=== PATIENT | male | born 1985 | race African-American/Black ===

== ENCOUNTER 2017-07-09 19:21 | Emergency (ER) | payer SELFPAY ==
[~2017-07-09] VITALS: Ht 170.2 cm; Wt 74.4 kg
[2017-07-09 19:36] VITALS: Ht 170.2 cm; Wt 74.4 kg
[2017-07-09 22:27] VITALS: BP 133/84
== END 2017-07-09 22:27 | disposition home or self-care (01) ==
LOC: ED 19:21
DX: S63.255A Unspecified dislocation of left ring finger, initial encounter (principal); F17.210 Nicotine dependence, cigarettes, uncomplicated; Y04.0XXA Assault by unarmed brawl or fight, initial encounter; Y93.89 Activity, other specified; Y92.89 Other specified places as the place of occurrence of the external cause; Y99.8 Other external cause status
CPT/HCPCS: J1885

== ENCOUNTER 2017-07-26 18:26 | Emergency (ER) | payer MEDICAID ==
[~2017-07-26] VITALS: Ht 170.2 cm; Wt 74.8 kg
[2017-07-26 18:29] VITALS: BP 144/84; Ht 170.2 cm; Wt 74.8 kg
== END 2017-07-26 19:37 | disposition home or self-care (01) ==
LOC: ED 18:26
DX: M79.645 Pain in left finger(s) (principal)